=== PATIENT | male | born 1945 | race Caucasian/White ===

== ENCOUNTER 2022-08-26 09:02 | Inpatient (IN) | payer MEDICARE, OTHER ==
[~2022-08-26] VITALS: Ht 190.5 cm; Wt 99.7 kg
[~2022-08-26 09:02] MED LIST: AMLO-489 PO; ATOR40TA52 PO; CHOL20007 PO; DIVA500T13 PO; FURO40TA4 PO; HYDR1TAB97 PO; LISI40TA11 PO; METO1TAB9 PO; SERT-160 PO
[2022-08-26 10:32] LABS: Basophils # (auto) 0 10 ^3/uL (0-0.2); Basophils % (auto) 0.4 % (0.0-2.0); Eosinophils # (auto) 0 10 ^3/uL (0-0.8); Eosinophils % (auto) 0.3 % (0.0-7.0); Hematocrit 44.3 % (41.0-53.0); Hemoglobin 14.6 g/dL (13.5-17.5); Lymphocytes # (auto) 1.8 10 ^3/uL (0.4-5.4); Lymphocytes % (auto) 15.2 % (10.0-50.0); Mean Corpuscular Hemoglobin 28.4 pg (28.0-32.0); Mean Corpuscular Hgb Conc. 32.9 g/dL (32.0-36.0); Mean Corpuscular Volume 86.5 fL (80.0-100.0); Monocytes # (auto) 0.8 10 ^3/uL (0-1.3); Monocytes % (auto) 6.6 % (0.0-12.0); Neutrophils # (auto) 9.3 10 ^3/uL (1.6-8.6); Neutrophils % (auto) 77.5 % (37.0-80.0); Red Blood Cells 5.13 10^6/uL (4.5-5.90); Red Cell Distribution Width 15.2 % (11.8-14.3)
[2022-08-26 11:10] LABS: BUN/Creatinine Ratio 25.9; Bilirubin, Total 1.8 mg/dL (0.2-1.0); Calcium 9.4 mg/dL (8.5-10.1); Total Protein 7.6 g/dL (6.4-8.2)
[2022-08-26] MEDS ORDERED: MORPHINE SULFATE INJ 2 MG/ml SYRG IV PRN (16:00)
[2022-08-26] MEDS ORDERED: NITROGLYCERIN 0.4 MG SL TAB SL PRN (16:00)
[2022-08-26] MEDS ORDERED: ENOXAPARIN SOD 100 MG/1 ML SYRINGE SC ONE (16:00)
[2022-08-26] MEDS ORDERED: ASPirin 325 MG TAB PO ONE ×2 (16:00→17:00)
[2022-08-26] MEDS ORDERED: ACETAMINOPHEN 325 MG TAB PO PRN (16:15)
[2022-08-26] MEDS ORDERED: ONDANSETRON HCL 4 MG/2 ML VIAL IV PRN (16:15)
[2022-08-26 16:43] LABS: Cholesterol 145 mg/dL (< 200); LDL Cholesterol 101 mg/dL (< 100); Triglycerides 67 mg/dL (< 150)
[2022-08-26 16:46] LABS: HDL Cholesterol 51 mg/dL (40-59)
[2022-08-26] MEDS ORDERED: cefTRIAXone 1GM/50ML D5W 50 ML IV ONE (17:00)
[2022-08-26] MEDS ORDERED: AZITHROMYCIN 500MG/ 250ML 250 ML IV ONE (17:00)
[2022-08-26] MEDS ORDERED: hydrALAZINE HCL 20 MG/ML VL IV PRN (17:00)
[2022-08-26 18:25] LABS: INR 1.14 (0.9-1.15)
[2022-08-27 04:48] LABS: Basophils # (auto) 0 10 ^3/uL (0-0.2); Basophils % (auto) 0.3 % (0.0-2.0); Eosinophils # (auto) 0.1 10 ^3/uL (0-0.8); Eosinophils % (auto) 1.4 % (0.0-7.0); Hematocrit 38.2 % (41.0-53.0); Hemoglobin 12.8 g/dL (13.5-17.5); Lymphocytes # (auto) 1.9 10 ^3/uL (0.4-5.4); Lymphocytes % (auto) 19.7 % (10.0-50.0); Mean Corpuscular Hgb Conc. 33.6 g/dL (32.0-36.0); Mean Corpuscular Volume 86.3 fL (80.0-100.0); Monocytes # (auto) 0.8 10 ^3/uL (0-1.3); Monocytes % (auto) 8.3 % (0.0-12.0); Neutrophils # (auto) 6.8 10 ^3/uL (1.6-8.6); Neutrophils % (auto) 70.3 % (37.0-80.0); Red Blood Cells 4.42 10^6/uL (4.5-5.90); Red Cell Distribution Width 15.1 % (11.8-14.3); White Blood Cell 9.7 10^3/uL (4.4-10.8)
[2022-08-27 05:14] LABS: Calcium 8.3 mg/dL (8.5-10.1); Potassium 3.9 mmol/L (3.5-5.1)
[2022-08-27 05:16] LABS: BUN/Creatinine Ratio 26.6; Bilirubin, Total 1.2 mg/dL (0.2-1.0); Total Protein 6.4 g/dL (6.4-8.2)
[2022-08-27] MEDS: cefTRIAXone 1GM/50ML D5W 50 ML IV SCH (08:55)
[2022-08-27] MEDS ORDERED: ENOXAPARIN SOD 40 MG/0.4 ML SYRINGE SC SCH ×2 (10:00)
[2022-08-27] MEDS: METOPROLOL SUCCINATE XL 50 MG TAB PO SCH (10:37)
[2022-08-27] MEDS: FUROSEMIDE 20 MG/2 ML VIAL IV SCH (10:37)
[2022-08-27] MEDS: AZITHROMYCIN 500MG/ 250ML 250 ML IV SCH (10:37)
[2022-08-27] MEDS: LISINOPRIL 20 MG TAB PO SCH (10:38)
[2022-08-27] MEDS: ASPirin 81 mg TAB PO SCH (10:38)
[2022-08-27] MEDS: ATORVASTATIN 20 MG TAB PO SCH (10:39)
[2022-08-27] MEDS: amLODIPine BESYLATE 5 MG TAB PO SCH (10:39)
[2022-08-27] MEDS: SERTRALINE HCL 50 MG TAB PO SCH (10:39)
[2022-08-27] MEDS ORDERED: SODIUM CHLORIDE 0.9% 1,000 ML IV ONE (17:15)
[2022-08-27] MEDS: NOREPINEPHRINE 8 MG/250ML KIT 250 ML IV SCH (18:45)
[2022-08-28] VITALS (10 sets, daily range): BP systolic 92–105; BP diastolic 57–67
[2022-08-28 06:29] LABS: Basophils # (auto) 0.1 10 ^3/uL (0-0.2); Basophils % (auto) 0.7 % (0.0-2.0); Eosinophils # (auto) 0 10 ^3/uL (0-0.8); Eosinophils % (auto) 0.1 % (0.0-7.0); Hematocrit 41.2 % (41.0-53.0); Hemoglobin 13.7 g/dL (13.5-17.5); Lymphocytes # (auto) 1.8 10 ^3/uL (0.4-5.4); Mean Corpuscular Hemoglobin 28.9 pg (28.0-32.0); Mean Corpuscular Hgb Conc. 33.2 g/dL (32.0-36.0); Monocytes # (auto) 0.8 10 ^3/uL (0-1.3); Neutrophils # (auto) 11.3 10 ^3/uL (1.6-8.6); Neutrophils % (auto) 80.2 % (37.0-80.0); Red Blood Cells 4.73 10^6/uL (4.5-5.90); Red Cell Distribution Width 15.1 % (11.8-14.3)
[2022-08-28 06:52] LABS: Calcium 8.5 mg/dL (8.5-10.1); Potassium 5.1 mmol/L (3.5-5.1)
[2022-08-28 06:55] LABS: BUN/Creatinine Ratio 29.5
[2022-08-28] MEDS: NOREPINEPHRINE 8 MG/250ML KIT 250 ML IV SCH ×3 (07:41→23:15)
[2022-08-28] MEDS: AZITHROMYCIN 500MG/ 250ML 250 ML IV SCH (10:00)
[2022-08-28] MEDS: LISINOPRIL 20 MG TAB PO SCH (10:00)
[2022-08-28] MEDS: FUROSEMIDE 20 MG/2 ML VIAL IV SCH (10:00)
[2022-08-28] MEDS: METOPROLOL SUCCINATE XL 50 MG TAB PO SCH (10:00)
[2022-08-28] MEDS: amLODIPine BESYLATE 5 MG TAB PO SCH (10:00)
[2022-08-28] MEDS: cefTRIAXone 1GM/50ML D5W 50 ML IV SCH (10:11)
[2022-08-28] MEDS: ATORVASTATIN 20 MG TAB PO SCH (10:12)
[2022-08-28] MEDS: ASPirin 81 mg TAB PO SCH (10:12)
[2022-08-28] MEDS: SERTRALINE HCL 50 MG TAB PO SCH (10:12)
[2022-08-28] MEDS ORDERED: PIPERACILLIN-TAZOB 3.375GM 100 ML IV ONE (12:00)
[2022-08-28] MEDS: PIPERACILLIN-TAZOB 3.375GM 100 ML IV SCH (20:16)
[2022-08-28 20:51] LABS: Alcohol, Urine < 3.0 mg/dL (0-10); Amphetamine Screen, Urine NEGATIVE (NEGATIVE); Barbiturate Scree,Urine NEGATIVE (NEGATIVE); Benzodiazephine Screen, Urine NEGATIVE (NEGATIVE); Cannabinoid Screen, Urine NEGATIVE (NEGATIVE); Cocaine Screen, Urine NEGATIVE (NEGATIVE); Opiate Scree,Urine NEGATIVE (NEGATIVE); Phencyclidine Screen, Urine NEGATIVE (NEGATIVE)
[2022-08-28 21:11] LABS: Urine Bacteria NONE SEEN /hpf (None Seen); Urine Blood 3+ /uL (Negative); Urine WBC 532 /hpf (0 - 3)
[2022-08-28 21:17] LABS: Urine Specific Gravity 1.022 (1.001-1.035)
[2022-08-29] VITALS (92 sets, daily range): BP systolic 86–189; BP diastolic 53–151
[2022-08-29 01:04] LABS: Basophils # (auto) 0 10 ^3/uL (0-0.2); Basophils % (auto) 0.3 % (0.0-2.0); Eosinophils # (auto) 0 10 ^3/uL (0-0.8); Eosinophils % (auto) 0.3 % (0.0-7.0); Hematocrit 41.9 % (41.0-53.0); Hemoglobin 13.8 g/dL (13.5-17.5); Lymphocytes # (auto) 2.3 10 ^3/uL (0.4-5.4); Lymphocytes % (auto) 18.3 % (10.0-50.0); Mean Corpuscular Hemoglobin 28.7 pg (28.0-32.0); Mean Corpuscular Volume 86.8 fL (80.0-100.0); Monocytes % (auto) 7.7 % (0.0-12.0); Neutrophils # (auto) 9.2 10 ^3/uL (1.6-8.6); Neutrophils % (auto) 73.4 % (37.0-80.0); Red Blood Cells 4.83 10^6/uL (4.5-5.90); Red Cell Distribution Width 15.3 % (11.8-14.3); White Blood Cell 12.6 10^3/uL (4.4-10.8)
[2022-08-29 01:25] LABS: BUN/Creatinine Ratio 31.7; Calcium 8.3 mg/dL (8.5-10.1); Potassium 4.9 mmol/L (3.5-5.1)
[2022-08-29] MEDS: PIPERACILLIN-TAZOB 3.375GM 100 ML IV SCH ×3 (04:04→20:06)
[2022-08-29] MEDS: SERTRALINE HCL 50 MG TAB PO SCH (10:00)
[2022-08-29] MEDS: ASPirin 81 mg TAB PO SCH (10:00)
[2022-08-29] MEDS ORDERED: BUPRENORPHINE 5 MCG/HR TD SCH (13:15)
[2022-08-29] MEDS: ATORVASTATIN 20 MG TAB PO SCH (15:12)
[2022-08-29] MEDS: FUROSEMIDE 20 MG/2 ML VIAL IV SCH ×2 (15:27→18:23)
[2022-08-29] MEDS: NOREPINEPHRINE 8 MG/250ML KIT 250 ML IV SCH (17:57)
[2022-08-29] MEDS: BUPRENORPHINE 5 MCG/HR TD SCH (20:39)
[2022-08-29] MEDS ORDERED: PATIENTS OWN MEDICATION TD SCH (21:00)
[2022-08-29] MEDS: AMIODARONE HCL 200 MG TAB PO SCH (21:37)
[2022-08-30] VITALS (93 sets, daily range): BP systolic 90–134; BP diastolic 17–89
[2022-08-30] MEDS: NOREPINEPHRINE 8 MG/250ML KIT 250 ML IV SCH (03:06)
[2022-08-30 04:38] LABS: BUN/Creatinine Ratio 26.4; Calcium 8.4 mg/dL (8.5-10.1); Potassium 4.2 mmol/L (3.5-5.1)
[2022-08-30 05:19] LABS: Basophils # (auto) 0 10 ^3/uL (0-0.2); Basophils % (auto) 0.3 % (0.0-2.0); Eosinophils # (auto) 0.2 10 ^3/uL (0-0.8); Hematocrit 44.9 % (41.0-53.0); Hemoglobin 14.8 g/dL (13.5-17.5); Lymphocytes % (auto) 13.3 % (10.0-50.0); Mean Corpuscular Hemoglobin 28.3 pg (28.0-32.0); Mean Corpuscular Volume 85.6 fL (80.0-100.0); Monocytes # (auto) 1.6 10 ^3/uL (0-1.3); Monocytes % (auto) 10.5 % (0.0-12.0); Neutrophils # (auto) 11.1 10 ^3/uL (1.6-8.6); Neutrophils % (auto) 74.9 % (37.0-80.0); Nucleated Red Blood Cells % 0.1 %; Red Blood Cells 5.25 10^6/uL (4.5-5.90); Red Cell Distribution Width 14.9 % (11.8-14.3); White Blood Cell 14.8 10^3/uL (4.4-10.8)
[2022-08-30] MEDS: PIPERACILLIN-TAZOB 3.375GM 100 ML IV SCH ×3 (06:02→19:56)
[2022-08-30] MEDS: FUROSEMIDE 20 MG/2 ML VIAL IV SCH ×2 (06:02→18:21)
[2022-08-30] MEDS: AMIODARONE HCL 200 MG TAB PO SCH ×2 (10:19→22:34)
[2022-08-30] MEDS: ATORVASTATIN 20 MG TAB PO SCH (10:19)
[2022-08-30] MEDS: PANTOPRAZOLE 40 MG TAB PO SCH (10:19)
[2022-08-30] MEDS: SERTRALINE HCL 50 MG TAB PO SCH (10:19)
[2022-08-30] MEDS: ASPirin 81 mg TAB PO SCH (10:19)
[2022-08-30] MEDS: ENOXAPARIN SOD 40 MG/0.4 ML SYRINGE SC SCH (10:20)
[2022-08-31] VITALS (82 sets, daily range): BP systolic 82–140; BP diastolic 47–89
[2022-08-31] MEDS: PIPERACILLIN-TAZOB 3.375GM 100 ML IV SCH ×3 (04:00→19:35)
[2022-08-31 04:37] LABS: Albumin 2.5 g/dL (3.4-5.0); Calcium 8.1 mg/dL (8.5-10.1); Potassium 4.3 mmol/L (3.5-5.1)
[2022-08-31 04:41] LABS: BUN/Creatinine Ratio 20.5; Bilirubin, Total 0.8 mg/dL (0.2-1.0); Total Protein 5.6 g/dL (6.4-8.2)
[2022-08-31] MEDS: NOREPINEPHRINE 8 MG/250ML KIT 250 ML IV SCH (05:18)
[2022-08-31] MEDS: FUROSEMIDE 20 MG/2 ML VIAL IV SCH ×2 (05:37→17:33)
[2022-08-31] MEDS: ASPirin 81 mg TAB PO SCH (09:57)
[2022-08-31] MEDS: ENOXAPARIN SOD 40 MG/0.4 ML SYRINGE SC SCH (09:57)
[2022-08-31] MEDS: PANTOPRAZOLE 40 MG TAB PO SCH (09:57)
[2022-08-31] MEDS: ATORVASTATIN 20 MG TAB PO SCH (09:58)
[2022-08-31] MEDS: SERTRALINE HCL 50 MG TAB PO SCH (09:58)
[2022-08-31] MEDS: AMIODARONE HCL 200 MG TAB PO SCH ×2 (09:59→21:53)
[2022-09-01] VITALS (80 sets, daily range): BP systolic 78–149; BP diastolic 48–119
[2022-09-01] MEDS: PIPERACILLIN-TAZOB 3.375GM 100 ML IV SCH ×3 (03:36→19:56)
[2022-09-01 04:47] LABS: Basophils # (auto) 0 10 ^3/uL (0-0.2); Basophils % (auto) 0.2 % (0.0-2.0); Eosinophils # (auto) 0.1 10 ^3/uL (0-0.8); Eosinophils % (auto) 1.3 % (0.0-7.0); Hematocrit 43.1 % (41.0-53.0); Lymphocytes # (auto) 1.8 10 ^3/uL (0.4-5.4); Lymphocytes % (auto) 19.5 % (10.0-50.0); Mean Corpuscular Hemoglobin 28.8 pg (28.0-32.0); Mean Corpuscular Hgb Conc. 32.5 g/dL (32.0-36.0); Mean Corpuscular Volume 88.4 fL (80.0-100.0); Monocytes # (auto) 0.7 10 ^3/uL (0-1.3); Monocytes % (auto) 7.4 % (0.0-12.0); Neutrophils # (auto) 6.4 10 ^3/uL (1.6-8.6); Neutrophils % (auto) 71.6 % (37.0-80.0); Red Blood Cells 4.87 10^6/uL (4.5-5.90)
[2022-09-01 05:03] LABS: Albumin 2.5 g/dL (3.4-5.0); BUN/Creatinine Ratio 15.6; Calcium 7.7 mg/dL (8.5-10.1); Potassium 3.5 mmol/L (3.5-5.1)
[2022-09-01 05:06] LABS: Bilirubin, Total 0.7 mg/dL (0.2-1.0); Total Protein 5.6 g/dL (6.4-8.2)
[2022-09-01] MEDS: FUROSEMIDE 20 MG/2 ML VIAL IV SCH ×2 (05:33→18:23)
[2022-09-01] MEDS: NOREPINEPHRINE 8 MG/250ML KIT 250 ML IV SCH (05:34)
[2022-09-01] MEDS: ENOXAPARIN SOD 40 MG/0.4 ML SYRINGE SC SCH (08:30)
[2022-09-01] MEDS: ASPirin 81 mg TAB PO SCH (08:31)
[2022-09-01] MEDS: SERTRALINE HCL 50 MG TAB PO SCH (10:45)
[2022-09-01] MEDS: ATORVASTATIN 20 MG TAB PO SCH (10:45)
[2022-09-01] MEDS: PANTOPRAZOLE 40 MG TAB PO SCH (10:45)
[2022-09-01] MEDS: AMIODARONE HCL 200 MG TAB PO SCH ×2 (10:45→21:40)
[2022-09-01] MEDS ORDERED: LIDOCAINE 2%HCL (LOCAL ANESTH.) INJ 20ML MDV ONE (13:39)
[2022-09-01] MEDS ORDERED: MIDAZOLAM HCL 2MG/2ML 2ml VIAL (1mg/ml) ONE (13:45)
[2022-09-01] MEDS ORDERED: VANCOMYCIN 1GM/250ML 0 ML IV ONE (13:45)
[2022-09-01] MEDS ORDERED: VANCOMYCIN HCL 1000 MG VL ONE (13:45)
[2022-09-01] MEDS ORDERED: fentaNYL CITRATE 100 MCG/2 ML VL ONE (13:46)
[2022-09-01] MEDS ORDERED: IODIXANOL 320MG/ML 100ML BTL IV ONE (13:50)
[2022-09-02] VITALS (86 sets, daily range): BP systolic 75–121; BP diastolic 48–83
[2022-09-02 04:28] LABS: Albumin 2.5 g/dL (3.4-5.0); Basophils # (auto) 0 10 ^3/uL (0-0.2); Basophils % (auto) 0.1 % (0.0-2.0); Calcium 8.4 mg/dL (8.5-10.1); Eosinophils # (auto) 0.1 10 ^3/uL (0-0.8); Lymphocytes # (auto) 1.1 10 ^3/uL (0.4-5.4); Lymphocytes % (auto) 13.3 % (10.0-50.0); Mean Corpuscular Hemoglobin 29.2 pg (28.0-32.0); Mean Corpuscular Hgb Conc. 34.1 g/dL (32.0-36.0); Mean Corpuscular Volume 85.4 fL (80.0-100.0); Monocytes # (auto) 0.7 10 ^3/uL (0-1.3); Monocytes % (auto) 8.1 % (0.0-12.0); Neutrophils # (auto) 6.6 10 ^3/uL (1.6-8.6); Neutrophils % (auto) 77.5 % (37.0-80.0); Nucleated Red Blood Cells % 0.1 %; Red Cell Distribution Width 14.7 % (11.8-14.3); White Blood Cell 8.5 10^3/uL (4.4-10.8)
[2022-09-02 04:31] LABS: Bilirubin, Total 0.7 mg/dL (0.2-1.0); Total Protein 5.6 g/dL (6.4-8.2)
[2022-09-02] MEDS: PIPERACILLIN-TAZOB 3.375GM 100 ML IV SCH ×3 (04:41→20:06)
[2022-09-02] MEDS: FUROSEMIDE 20 MG/2 ML VIAL IV SCH ×2 (06:19→19:30)
[2022-09-02] MEDS: ASPirin 81 mg TAB PO SCH (09:49)
[2022-09-02] MEDS: ENOXAPARIN SOD 40 MG/0.4 ML SYRINGE SC SCH (09:50)
[2022-09-02] MEDS: ATORVASTATIN 20 MG TAB PO SCH (10:34)
[2022-09-02] MEDS: AMIODARONE HCL 200 MG TAB PO SCH ×2 (10:34→22:11)
[2022-09-02] MEDS: SERTRALINE HCL 50 MG TAB PO SCH (10:34)
[2022-09-02] MEDS: PANTOPRAZOLE 40 MG TAB PO SCH (10:34)
[2022-09-03] VITALS (75 sets, daily range): BP systolic 76–125; BP diastolic 50–84
[2022-09-03 04:00] LABS: Basophils # (auto) 0 10 ^3/uL (0-0.2); Basophils % (auto) 0.2 % (0.0-2.0); Eosinophils # (auto) 0.2 10 ^3/uL (0-0.8); Eosinophils % (auto) 2.3 % (0.0-7.0); Hematocrit 42.8 % (41.0-53.0); Hemoglobin 14.5 g/dL (13.5-17.5); Lymphocytes # (auto) 1.5 10 ^3/uL (0.4-5.4); Lymphocytes % (auto) 17.4 % (10.0-50.0); Mean Corpuscular Hemoglobin 28.8 pg (28.0-32.0); Mean Corpuscular Hgb Conc. 33.8 g/dL (32.0-36.0); Monocytes # (auto) 0.8 10 ^3/uL (0-1.3); Monocytes % (auto) 9.4 % (0.0-12.0); Neutrophils # (auto) 5.9 10 ^3/uL (1.6-8.6); Neutrophils % (auto) 70.7 % (37.0-80.0); Red Blood Cells 5.03 10^6/uL (4.5-5.90); Red Cell Distribution Width 14.8 % (11.8-14.3); White Blood Cell 8.4 10^3/uL (4.4-10.8)
[2022-09-03] MEDS: PIPERACILLIN-TAZOB 3.375GM 100 ML IV SCH ×3 (04:15→20:27)
[2022-09-03] MEDS: NOREPINEPHRINE 8 MG/250ML KIT 250 ML IV SCH ×2 (04:16→17:56)
[2022-09-03 04:21] LABS: Calcium 8.5 mg/dL (8.5-10.1); Potassium 3.6 mmol/L (3.5-5.1)
[2022-09-03 04:24] LABS: BUN/Creatinine Ratio 24.4
[2022-09-03] MEDS: FUROSEMIDE 20 MG/2 ML VIAL IV SCH ×2 (06:26→17:56)
[2022-09-03] MEDS: ENOXAPARIN SOD 40 MG/0.4 ML SYRINGE SC SCH (09:01)
[2022-09-03] MEDS: ATORVASTATIN 20 MG TAB PO SCH (10:37)
[2022-09-03] MEDS: PANTOPRAZOLE 40 MG TAB PO SCH (10:37)
[2022-09-03] MEDS: AMIODARONE HCL 200 MG TAB PO SCH ×2 (10:37→22:53)
[2022-09-03] MEDS: SERTRALINE HCL 50 MG TAB PO SCH (10:38)
[2022-09-03] MEDS ORDERED: DIGOXIN (250MCG/ML) 2 ML AMPULE IV ONE (15:45)
[2022-09-04] VITALS (92 sets, daily range): BP systolic 79–115; BP diastolic 50–87
[2022-09-04 04:23] LABS: Basophils # (auto) 0 10 ^3/uL (0-0.2); Basophils % (auto) 0.2 % (0.0-2.0); Eosinophils # (auto) 0.4 10 ^3/uL (0-0.8); Eosinophils % (auto) 3.7 % (0.0-7.0); Hematocrit 42.6 % (41.0-53.0); Hemoglobin 14.4 g/dL (13.5-17.5); Lymphocytes # (auto) 1.9 10 ^3/uL (0.4-5.4); Lymphocytes % (auto) 19.6 % (10.0-50.0); Mean Corpuscular Hemoglobin 28.9 pg (28.0-32.0); Mean Corpuscular Hgb Conc. 33.8 g/dL (32.0-36.0); Mean Corpuscular Volume 85.6 fL (80.0-100.0); Monocytes # (auto) 0.8 10 ^3/uL (0-1.3); Monocytes % (auto) 8.6 % (0.0-12.0); Neutrophils # (auto) 6.5 10 ^3/uL (1.6-8.6); Neutrophils % (auto) 67.9 % (37.0-80.0); Nucleated Red Blood Cells % 0.1 %; Red Blood Cells 4.97 10^6/uL (4.5-5.90); Red Cell Distribution Width 14.6 % (11.8-14.3); White Blood Cell 9.6 10^3/uL (4.4-10.8)
[2022-09-04 04:30] LABS: Calcium 8.4 mg/dL (8.5-10.1); Potassium 3.7 mmol/L (3.5-5.1)
[2022-09-04 04:32] LABS: BUN/Creatinine Ratio 23.7
[2022-09-04] MEDS: PIPERACILLIN-TAZOB 3.375GM 100 ML IV SCH ×3 (04:38→20:48)
[2022-09-04] MEDS: FUROSEMIDE 20 MG/2 ML VIAL IV SCH ×2 (06:36→18:52)
[2022-09-04] MEDS: NOREPINEPHRINE 8 MG/250ML KIT 250 ML IV SCH (08:15)
[2022-09-04] MEDS: ENOXAPARIN SOD 40 MG/0.4 ML SYRINGE SC SCH (10:00)
[2022-09-04] MEDS: AMIODARONE HCL 200 MG TAB PO SCH ×2 (10:00→23:03)
[2022-09-04] MEDS: ATORVASTATIN 20 MG TAB PO SCH (10:24)
[2022-09-04] MEDS: PANTOPRAZOLE 40 MG TAB PO SCH (10:24)
[2022-09-04] MEDS: SERTRALINE HCL 50 MG TAB PO SCH (10:25)
[2022-09-04] MEDS: DIGOXIN 0.125 MG TAB PO SCH (10:26)
[2022-09-05] VITALS (93 sets, daily range): BP systolic 70–124; BP diastolic 43–74
[2022-09-05] MEDS: PIPERACILLIN-TAZOB 3.375GM 100 ML IV SCH ×2 (04:22→11:59)
[2022-09-05 04:51] LABS: Basophils # (auto) 0 10 ^3/uL (0-0.2); Basophils % (auto) 0.3 % (0.0-2.0); Eosinophils # (auto) 0.4 10 ^3/uL (0-0.8); Eosinophils % (auto) 4.2 % (0.0-7.0); Hematocrit 43.9 % (41.0-53.0); Hemoglobin 14.5 g/dL (13.5-17.5); Lymphocytes # (auto) 1.9 10 ^3/uL (0.4-5.4); Lymphocytes % (auto) 18.8 % (10.0-50.0); Mean Corpuscular Hemoglobin 28.6 pg (28.0-32.0); Mean Corpuscular Hgb Conc. 33.1 g/dL (32.0-36.0); Mean Corpuscular Volume 86.6 fL (80.0-100.0); Monocytes # (auto) 0.9 10 ^3/uL (0-1.3); Monocytes % (auto) 8.7 % (0.0-12.0); Red Blood Cells 5.07 10^6/uL (4.5-5.90); Red Cell Distribution Width 14.7 % (11.8-14.3); White Blood Cell 10.3 10^3/uL (4.4-10.8)
[2022-09-05 05:19] LABS: Calcium 8.4 mg/dL (8.5-10.1)
[2022-09-05] MEDS: FUROSEMIDE 20 MG/2 ML VIAL IV SCH ×2 (06:16→17:45)
[2022-09-05] MEDS: NOREPINEPHRINE 8 MG/250ML KIT 250 ML IV SCH ×3 (06:16→11:30)
[2022-09-05] MEDS: AMIODARONE HCL 200 MG TAB PO SCH ×2 (10:24→22:02)
[2022-09-05] MEDS: SERTRALINE HCL 50 MG TAB PO SCH (10:24)
[2022-09-05] MEDS: ATORVASTATIN 20 MG TAB PO SCH (10:24)
[2022-09-05] MEDS: PANTOPRAZOLE 40 MG TAB PO SCH (10:24)
[2022-09-05] MEDS: DIGOXIN 0.125 MG TAB PO SCH (10:24)
[2022-09-05] MEDS: ENOXAPARIN SOD 40 MG/0.4 ML SYRINGE SC SCH (11:15)
[2022-09-06] VITALS (95 sets, daily range): BP systolic 63–142; BP diastolic 43–79
[2022-09-06 04:22] LABS: Basophils # (auto) 0 10 ^3/uL (0-0.2); Basophils % (auto) 0.3 % (0.0-2.0); Eosinophils # (auto) 0.4 10 ^3/uL (0-0.8); Eosinophils % (auto) 4.2 % (0.0-7.0); Hematocrit 43.2 % (41.0-53.0); Hemoglobin 14.6 g/dL (13.5-17.5); Lymphocytes % (auto) 21.6 % (10.0-50.0); Mean Corpuscular Hemoglobin 28.9 pg (28.0-32.0); Mean Corpuscular Hgb Conc. 33.7 g/dL (32.0-36.0); Mean Corpuscular Volume 85.9 fL (80.0-100.0); Monocytes # (auto) 0.7 10 ^3/uL (0-1.3); Monocytes % (auto) 7.3 % (0.0-12.0); Neutrophils # (auto) 6.2 10 ^3/uL (1.6-8.6); Neutrophils % (auto) 66.6 % (37.0-80.0); Nucleated Red Blood Cells % 0.1 %; Red Blood Cells 5.04 10^6/uL (4.5-5.90); Red Cell Distribution Width 14.5 % (11.8-14.3); White Blood Cell 9.3 10^3/uL (4.4-10.8)
[2022-09-06 04:32] LABS: BUN/Creatinine Ratio 30.4; Calcium 8.2 mg/dL (8.5-10.1); Potassium 4.3 mmol/L (3.5-5.1)
[2022-09-06] MEDS: FUROSEMIDE 20 MG/2 ML VIAL IV SCH ×2 (06:21→17:34)
[2022-09-06] MEDS: ENOXAPARIN SOD 40 MG/0.4 ML SYRINGE SC SCH (10:15)
[2022-09-06] MEDS: SERTRALINE HCL 50 MG TAB PO SCH (10:15)
[2022-09-06] MEDS: PANTOPRAZOLE 40 MG TAB PO SCH (10:15)
[2022-09-06] MEDS: DIGOXIN 0.125 MG TAB PO SCH (10:16)
[2022-09-06] MEDS: AMIODARONE HCL 200 MG TAB PO SCH ×2 (10:16→22:04)
[2022-09-06] MEDS: ATORVASTATIN 20 MG TAB PO SCH (10:17)
[2022-09-06] MEDS: BUPRENORPHINE 5 MCG/HR TD SCH (10:59)
[2022-09-06] MEDS: ALBUMIN 25% 50 ML IV SCH ×2 (14:41→19:41)
[2022-09-06] MEDS: NOREPINEPHRINE 8 MG/250ML KIT 250 ML IV SCH (17:32)
[2022-09-07] VITALS (86 sets, daily range): BP systolic 86–127; BP diastolic 47–74
[2022-09-07] MEDS: ALBUMIN 25% 50 ML IV SCH (03:28)
[2022-09-07 04:37] LABS: Basophils # (auto) 0 10 ^3/uL (0-0.2); Basophils % (auto) 0.3 % (0.0-2.0); Eosinophils # (auto) 0.3 10 ^3/uL (0-0.8); Eosinophils % (auto) 3.6 % (0.0-7.0); Hematocrit 39.5 % (41.0-53.0); Hemoglobin 13.3 g/dL (13.5-17.5); Lymphocytes # (auto) 1.9 10 ^3/uL (0.4-5.4); Mean Corpuscular Hemoglobin 28.9 pg (28.0-32.0); Mean Corpuscular Hgb Conc. 33.7 g/dL (32.0-36.0); Mean Corpuscular Volume 85.7 fL (80.0-100.0); Monocytes # (auto) 0.6 10 ^3/uL (0-1.3); Monocytes % (auto) 8.1 % (0.0-12.0); Neutrophils # (auto) 4.6 10 ^3/uL (1.6-8.6); Red Blood Cells 4.61 10^6/uL (4.5-5.90); Red Cell Distribution Width 14.4 % (11.8-14.3); White Blood Cell 7.4 10^3/uL (4.4-10.8)
[2022-09-07 04:48] LABS: Anion Gap 8 (5-15); BUN/Creatinine Ratio 30.6; Blood Urea Nitrogen 30 mg/dL (7-18); Calcium 8.1 mg/dL (8.5-10.1); Carbon Dioxide 36 mmol/L (21-32); Chloride 91 mmol/L (98-107); GFR African American 96 mL/min; GFR Non-African American 79 mL/min; Glucose 81 mg/dL (74-106); Potassium 4.4 mmol/L (3.5-5.1); Sodium 135 mmol/L (136-145)
[2022-09-07] MEDS: FUROSEMIDE 20 MG/2 ML VIAL IV SCH ×2 (06:04→18:00)
[2022-09-07] MEDS: AMIODARONE HCL 200 MG TAB PO SCH ×2 (10:06→21:58)
[2022-09-07] MEDS: ENOXAPARIN SOD 40 MG/0.4 ML SYRINGE SC SCH (10:07)
[2022-09-07] MEDS: DIGOXIN 0.125 MG TAB PO SCH (10:07)
[2022-09-07] MEDS: SERTRALINE HCL 50 MG TAB PO SCH (10:07)
[2022-09-07] MEDS: PANTOPRAZOLE 40 MG TAB PO SCH (10:07)
[2022-09-07] MEDS: NOREPINEPHRINE 8 MG/250ML KIT 250 ML IV SCH (11:30)
[2022-09-07] MEDS: ATORVASTATIN 20 MG TAB PO SCH (21:58)
[2022-09-08] VITALS (35 sets, daily range): BP systolic 84–113; BP diastolic 53–78
[2022-09-08 04:21] LABS: Basophils # (auto) 0 10 ^3/uL (0-0.2); Basophils % (auto) 0.4 % (0.0-2.0); Eosinophils # (auto) 0.2 10 ^3/uL (0-0.8); Eosinophils % (auto) 2.1 % (0.0-7.0); Hematocrit 40.6 % (41.0-53.0); Hemoglobin 13.3 g/dL (13.5-17.5); Lymphocytes # (auto) 1.6 10 ^3/uL (0.4-5.4); Lymphocytes % (auto) 20.3 % (10.0-50.0); Mean Corpuscular Hemoglobin 28.1 pg (28.0-32.0); Mean Corpuscular Hgb Conc. 32.7 g/dL (32.0-36.0); Mean Corpuscular Volume 86.2 fL (80.0-100.0); Monocytes # (auto) 0.6 10 ^3/uL (0-1.3); Monocytes % (auto) 8.2 % (0.0-12.0); Neutrophils # (auto) 5.4 10 ^3/uL (1.6-8.6); Red Blood Cells 4.71 10^6/uL (4.5-5.90); Red Cell Distribution Width 14.5 % (11.8-14.3); White Blood Cell 7.9 10^3/uL (4.4-10.8)
[2022-09-08 04:44] LABS: BUN/Creatinine Ratio 30.2; Calcium 8.5 mg/dL (8.5-10.1); Potassium 4.6 mmol/L (3.5-5.1)
[2022-09-08] MEDS: FUROSEMIDE 20 MG/2 ML VIAL IV SCH ×2 (06:08→19:24)
[2022-09-08] MEDS: DIGOXIN 0.125 MG TAB PO SCH (10:18)
[2022-09-08] MEDS: AMIODARONE HCL 200 MG TAB PO SCH ×2 (10:18→21:51)
[2022-09-08] MEDS: PANTOPRAZOLE 40 MG TAB PO SCH (10:19)
[2022-09-08] MEDS: ENOXAPARIN SOD 40 MG/0.4 ML SYRINGE SC SCH (10:19)
[2022-09-08] MEDS: SERTRALINE HCL 50 MG TAB PO SCH (10:19)
[2022-09-08] MEDS: ATORVASTATIN 20 MG TAB PO SCH (21:51)
[2022-09-09 05:00] VITALS: BP 91/51
[2022-09-09] MEDS: FUROSEMIDE 20 MG/2 ML VIAL IV SCH ×2 (06:00→17:51)
[2022-09-09 09:00] VITALS: BP 91/59
[2022-09-09] MEDS: PANTOPRAZOLE 40 MG TAB PO SCH (09:38)
[2022-09-09] MEDS: ENOXAPARIN SOD 40 MG/0.4 ML SYRINGE SC SCH (09:38)
[2022-09-09] MEDS: SERTRALINE HCL 50 MG TAB PO SCH (09:38)
[2022-09-09] MEDS: DIGOXIN 0.125 MG TAB PO SCH (09:39)
[2022-09-09] MEDS: AMIODARONE HCL 200 MG TAB PO SCH ×2 (09:39→22:24)
[2022-09-09 13:00] VITALS: BP 112/62
[2022-09-09 17:00] VITALS: BP 108/60
[2022-09-09 22:00] VITALS: BP 118/52
[2022-09-09] MEDS: ATORVASTATIN 20 MG TAB PO SCH (22:23)
[2022-09-10 04:57] VITALS: BP 97/57
[2022-09-10 05:55] LABS: Basophils # (auto) 0 10 ^3/uL (0-0.2); Basophils % (auto) 0.3 % (0.0-2.0); Eosinophils # (auto) 0.1 10 ^3/uL (0-0.8); Eosinophils % (auto) 1.4 % (0.0-7.0); Hematocrit 40.6 % (41.0-53.0); Hemoglobin 13.4 g/dL (13.5-17.5); Lymphocytes # (auto) 2.1 10 ^3/uL (0.4-5.4); Lymphocytes % (auto) 25.2 % (10.0-50.0); Mean Corpuscular Hemoglobin 28.5 pg (28.0-32.0); Mean Corpuscular Volume 86.6 fL (80.0-100.0); Monocytes # (auto) 0.9 10 ^3/uL (0-1.3); Monocytes % (auto) 10.6 % (0.0-12.0); Neutrophils # (auto) 5.2 10 ^3/uL (1.6-8.6); Neutrophils % (auto) 62.5 % (37.0-80.0); Red Blood Cells 4.69 10^6/uL (4.5-5.90); Red Cell Distribution Width 14.6 % (11.8-14.3); White Blood Cell 8.4 10^3/uL (4.4-10.8)
[2022-09-10] MEDS: FUROSEMIDE 20 MG/2 ML VIAL IV SCH (06:00)
[2022-09-10 06:03] LABS: BUN/Creatinine Ratio 28.3; Calcium 9.1 mg/dL (8.5-10.1); Potassium 4.7 mmol/L (3.5-5.1)
[2022-09-10 09:00] VITALS: BP 105/61
[2022-09-10] MEDS ORDERED: AMIO200T33 PO (09:50)
[2022-09-10] MEDS ORDERED: APIX5TAB PO (09:50)
[2022-09-10] MEDS: ENOXAPARIN SOD 40 MG/0.4 ML SYRINGE SC SCH (09:55)
[2022-09-10] MEDS: DIGOXIN 0.125 MG TAB PO SCH (09:55)
[2022-09-10] MEDS: PANTOPRAZOLE 40 MG TAB PO SCH (09:55)
[2022-09-10] MEDS: AMIODARONE HCL 200 MG TAB PO SCH (09:56)
[2022-09-10] MEDS: SERTRALINE HCL 50 MG TAB PO SCH (09:56)
[2022-09-10 12:46] VITALS: BP 97/57
== END 2022-09-10 14:30 | disposition home health service (06) | DRG 853 ==
LOC: ER 09:02 → TELE 15:51 → ICU WEST 08-28 21:05 → TELE-EAST 09-08 18:01
PROVIDERS: ADMIT Registered Nurse; ATTEND Internal Medicine Pulmonary Disease
PROC: 05HC33Z Insertion of Infusion Device into Left Basilic Vein, Percutaneous Approach (ICD-10-PCS; 2022-08-28)
PROC: B54NZZA Ultrasonography of Left Upper Extremity Veins, Guidance (ICD-10-PCS; 2022-08-28)
PROC: 0W993ZZ Drainage of Right Pleural Cavity, Percutaneous Approach (ICD-10-PCS; 2022-08-28)
PROC: 0T9B80Z Drainage of Bladder with Drainage Device, Via Natural or Artificial Opening Endoscopic (ICD-10-PCS; 2022-08-29)
PROC: 0JH608Z Insertion of Defibrillator Generator into Chest Subcutaneous Tissue and Fascia, Open Approach (ICD-10-PCS; principal; 2022-09-01)
PROC: 02H63KZ Insertion of Defibrillator Lead into Right Atrium, Percutaneous Approach (ICD-10-PCS; 2022-09-01)
PROC: 02HK3KZ Insertion of Defibrillator Lead into Right Ventricle, Percutaneous Approach (ICD-10-PCS; 2022-09-01)
DX: A41.9 Sepsis, unspecified organism (principal); I50.23 Acute on chronic systolic (congestive) heart failure; J69.0 Pneumonitis due to inhalation of food and vomit; R65.21 Severe sepsis with septic shock; J96.00 Acute respiratory failure, unspecified whether with hypoxia or hypercapnia; I24.9 Acute ischemic heart disease, unspecified; J98.11 Atelectasis; N17.9 Acute kidney failure, unspecified; D68.59 Other primary thrombophilia; I42.0 Dilated cardiomyopathy; I47.20 Ventricular tachycardia, unspecified; J91.8 Pleural effusion in other conditions classified elsewhere; Z20.822 Contact with and (suspected) exposure to COVID-19; D69.6 Thrombocytopenia, unspecified; E66.9 Obesity, unspecified; E78.5 Hyperlipidemia, unspecified; G40.909 Epilepsy, unspecified, not intractable, without status epilepticus; I11.0 Hypertensive heart disease with heart failure; I25.119 Atherosclerotic heart disease of native coronary artery with unspecified angina pectoris; R31.9 Hematuria, unspecified; I48.0 Paroxysmal atrial fibrillation; Z83.3 Family history of diabetes mellitus; Z68.29 Body mass index [BMI] 29.0-29.9, adult; I25.2 Old myocardial infarction; Z95.810 Presence of automatic (implantable) cardiac defibrillator; Z95.5 Presence of coronary angioplasty implant and graft; Z82.49 Family history of ischemic heart disease and other diseases of the circulatory system; Z88.8 Allergy status to other drugs, medicaments and biological substances
CPT/HCPCS: 33225; 33249; 36415; 71045; 71250; 76604; 76942; 80048; 80053; 80061; 80162; 80307; 81001; 82962; 83735; 83880; 83986; 84443; 84484; 85025; 85610; 87040; 87070; 87081; 87205; 87426; 89051; 93005; 93306; 96365; 96367; 96372; 97110; 97116; 97163; 97530; 99152; G0378; J0696; J2250; J2405; J2543; Q9967

== ENCOUNTER 2022-09-22 11:49 | Emergency (ER) | payer OTHER ==
[~2022-09-22] VITALS: Ht 190.5 cm; Wt 90.0 kg
[~2022-09-22 11:49] MED LIST changes: +AMIO200T33 PO; +APIX5TAB PO
[2022-09-22 12:15] VITALS: BP 121/64
[2022-09-22] MEDS ORDERED: BACDST PO (15:09)
== END 2022-09-22 20:01 | disposition home or self-care (01) ==
LOC: ER 11:49
DX: R31.9 Hematuria, unspecified (principal); I11.0 Hypertensive heart disease with heart failure; I50.9 Heart failure, unspecified; I25.2 Old myocardial infarction; I25.10 Atherosclerotic heart disease of native coronary artery without angina pectoris; I48.91 Unspecified atrial fibrillation; E78.5 Hyperlipidemia, unspecified; Z79.899 Other long term (current) drug therapy; Z88.8 Allergy status to other drugs, medicaments and biological substances